=== PATIENT | male | born 1970 | race Caucasian/White ===

== ENCOUNTER 2024-10-16 21:23 | Observation (INO) | payer BC, SELFPAY ==
[2024-10-16 15:12] VITALS: BP 146/96
[2024-10-16 15:27] LABS: % Basophils 0.4 % (0-2); % Eosinophils 0.3 % (0-6); % Immature Granulocytes 0.3 % (0-0.5); % Lymphocytes 19.6 % (20.5-51.1); % Monocytes 7.7 % (1.7-9.3); % Neutrophils 71.7 % (42.2-75.2); Absolute Lymphocytes 1.6 10^3/uL (1.2-3.4); Absolute Monocytes 0.6 10^3/uL (0.1-0.6); Absolute Neutrophils 5.7 10^3/uL (1.4-6.5); Hematocrit 47.4 % (39.0-52.0); Hemoglobin 16.7 g/dL (13.0-18.0); Mean Corp Hgb Conc. 35.2 g/dL (33.0-37.0); Mean Corpuscular Hgb 28.7 pg (27.0-31.0); Mean Corpuscular Volume 81.6 fL (80.0-94.0); Mean Platelet Volume 9.3 fL (7.4-10.4); Nucleated Red Blood Cells % 0 % (-); Platelet Count 205 10^3/uL (130-400); Red Blood Cell Count 5.81 10^6/uL (4.70-6.10); Red Cell Dist. Width 12.8 % (11.5-14.5)
[2024-10-16 15:44] LABS: ALT (SGPT) 15 U/L (0-50); AST (SGOT) 19 U/L (17-59); Albumin 4.9 g/dl (3.5-5.0); Alkaline Phosphatase 53 U/L (38-126); Blood Urea Nitrogen 20 mg/dl (9-20); Calcium 9.2 mg/dl (8.4-10.2); Carbon Dioxide 22 mmol/L (22-30); Chloride 102 mmol/L (98-107); Glucose 200 mg/dl (70-99); Lipase 101 U/L (23-300); Potassium 4.1 mmol/L (3.5-5.1); Sodium 137 mmol/L (135-145); Total Bilirubin 1.1 mg/dl (0.2-1.3); Total Protein 7.9 g/dl (6.3-8.2)
[2024-10-16 16:11] LABS: Urine Albumin 2+ (Neg - Trace); Urine Bilirubin Negative (Negative); Urine Character Clear (Clear); Urine Color Yellow; Urine Glucose 4+ (Negative); Urine Ketone Negative (Negative); Urine Leukocyte Negative (Negative); Urine Nitrite Negative (Negative); Urine Occult Blood 2+ (Negative); Urine Urobilinogen Negative (Neg - 1+)
[2024-10-16 16:33] VITALS: BP 159/98
[2024-10-16 16:39] LABS: Urine Bacteria Few (Negative); Urine Red Blood Cell 0-2 /HPF (0-2); Urine White Cell 0-2 /HPF (0-5)
--- NOTE | 2024-10-16 16:40 | ED.GENMED ---
History of Present Illness
General
Chief Complaint: Flank Pain
Source: patient
Time Seen by Provider: 10/16/24 16:33
History of Present Illness
History of Present Illness:
54-year-old male with no significant past medical history presenting to the ER for evaluation of a sudden onset right-sided flank pain that began Tuesday afternoon described to be a mostly constant pain but has sharper bursts of pain
intermittently, Tuesday was starting to radiate around into the front of his abdomen into the groin, today started feel the pain in the flank again. Patient notes yesterday he had some vomiting, today none and currently denies any nausea. Notes a
Tmax of 99.9. Symptoms have all been improved with Motrin, pain currently however 9 out of 10. Denies any history of similar. No other associated symptoms.
Past History
Past History
ED Past Medical History: None
ED Past Surgical History: Appendectomy
Social History
Tobacco: Non-smoker
Alcohol: Occasional
Drug: None
Personal:
Living: with family
Employment: Employed
Review of Systems
Review of Systems
All Other Systems: ROS reviewed and negative except as documented in HPI and ROS
Phy Exam
Physical Exam
Physical Exam:
GENERAL: Alert , in no apparent distress, overweight
EYE: clear conjunctiva b/l
HEAD: NCAT
ENT: o/p clr, mmm.
CARDIAC: Regular rate and rhythm .
LUNGS: Clear breath sounds bilaterally, no acute respiratory distress, no wheezes/rales/rhonchi
ABDOMEN: Soft, without focal tenderness, no r/g, right-sided CVA tenderness, negative Choudhury sign
NEUROLOGICAL: Alert and oriented
SKIN: Warm and dry, skin intact.
MUSCULOSKELETAL: well perfused.
PSYCH: Normal and appropriate interaction.
Scores
Heart Failure Risk
Heart Failure Risk Score: Not Applicable
Heart Score for Chest Pain Patients
STEMI patient?: Not applicable
Withdrawal Assessment of Alcohol
Withdrawal Assessment Completed?: Not applicable
Course
Orders/Labs/Results
Orders:
Orders
10/16/24 15:21
Complete Blood Count/With Diff Urgent
Comprehensive Metabolic Panel Urgent
Lipase Urgent
10/16/24 15:25
Urinalysis Reflex To Culture Urgent
Date Specimen was Collected: 10/16/24
Time Specimen was Collected: 15:15
Urine Microscopic Reflex Cult Urgent
10/16/24 16:39
CT Abd/pel Without Iv Or Oral Urgent
Comment:
Reason For Exam: right flank pain, microscopic hematuria
0.9% Sodium Chloride 1000 ml [Nss] 1,000 ml IV BOLUS
Morphine Sulfate 4 mg IV NOW STA
10/16/24 17:41
CefTRIAXone [Rocephin] 1,000 mg IV NOW STA
10/16/24 18:16
0.9% Sodium Chloride 1000 ml [Nss] 1,000 ml IV BOLUS
10/16/24 18:30
Blood Culture Q30M
NICOLAS Source: Blood/Venous
Specimen Description:
10/16/24 19:00
Blood Culture Q30M
NICOLAS Source: Blood/Venous
Specimen Description:
Abnormal Lab Results
10/16/24 10/16/24
15:21 15:25
Lymphocytes % 19.6 L %
(20.5-51.1)
Creatinine 1.6 H mg/dL
(0.7-1.3)
Glucose 200 H mg/dl
(70-99)
Ur Occult Blood Reflex 2+ A
(Negative)
Urine Bacteria (Reflex) Few A
(Negative)
Urine Glucose 4+ A
(Negative)
Urine Albumin (Reflex) 2+ A
(Neg - Trace)
10/16/24 15:21
10/16/24 15:21
Vital Signs
Initial and Last Documented VS:
Initial Vital Signs
Temp Pulse Resp BP Pulse Ox
97.8 F 86 16 146/96 98
10/16/24 15:12 10/16/24 15:12 10/16/24 15:12 10/16/24 15:12 10/16/24 15:12
Last Documented Vital Signs
Temp Pulse Resp BP Pulse Ox
97.8 F 79 16 159/98 98
10/16/24 15:12 10/16/24 16:56 10/16/24 16:56 10/16/24 16:33 10/16/24 17:15
MDM/Problems Addressed
Differential Diagnosis Includes:
Renal/ureteral colic, renal dysfunction, urinary infection/pyelonephritis/cystitis, previous appendectomy so no concern for this, shingles
MDM/Problems Addressed:
54-year-old male presenting the ER for evaluation of sudden onset right-sided flank pain accompanied with vomiting, had low-grade fevers with Tmax of 99.9. Afebrile here, mildly hypertensive and does appear mildly uncomfortable. Labs and urine
initiated on arrival which do show a mild acute kidney injury, hyperglycemia and microscopic hematuria. CT scan ordered. Morphine for pain control. Fluids ordered. Reassessment following.
*Radiology
Radiology exam reviewed: radiology read reviewed
*Pulse Oximetry
Patient hypoxic: no
*Critical Care Note
Total Time (30-74mins, 75-104mins- exclusive of procedures): Not Applicable
Patient Management
Discussion with other providers: Hospitalist and Make Up Operator Helper
Escalation/DeEscalation of care consider admission/obs:
CT scan shows a 6 x 4 mm obstructive stone at the mid right ureter. Given his reported low-grade fever at home combined with his mild acute kidney injury I discussed the case with urology who does recommend patient be admitted to hospitalist
service for antibiotics, fluids with plan to take patient to the OR in the morning. Urology to come see the patient at bedside. Hospitalist team notified and accepts for continued evaluation and treatment.
ED Attending Note
-
Portions of this chart may have been created with voice recognition software.� Occasional wrong word or��sound alike� substitutions may have occurred due to the inherent limitations of voice recognition software.
Discharge Plan
Departure
Patient Disposition: Admit
Date of Disposition: 10/16/24
Time of Disposition: 17:42
Presentation/result/management discussed w/ accepting MD/DO: Hospitalist
Discharge Problem:
Colic, ureteral, MERLENE (acute kidney injury), Ureterolithiasis
Prescriptions:
No Action
rosuvastatin [Crestor] 10 mg Tablet
10 mg PO DAILY
lisinopril 10 mg Tablet
10 mg PO DAILY
ibuprofen [Advil] 200 mg Tablet
200 mg PO TIDPRN PRN (Reason: MILD PAIN)
metformin 500 mg Tablet Extended Release 24 Hr
1,000 mg PO DAILY
escitalopram oxalate [Lexapro] 10 mg Tablet
10 mg PO DAILY
Jardiance 10 mg Tablet
10 mg PO DAILY
Ozempic 0.25 mg or 0.5 mg(2 mg/1.5 mL) Pen Injector
0.5 mg SC SA
Referrals:
Brant Spivey MD [Family Provider] -
Interventions
Interventions:
*Risk Screen - Suicide Last Done: 10/16/24 15:14
*General Assessment Last Done: 10/16/24 17:14
*Neglect/Abuse Screening Last Done: 10/16/24 15:14
*ED- Fall Risk Assessment Last Done: 10/16/24 17:14
*ED COVID-19 Vaccine History Last Done: 10/16/24 17:14
LW-Lgvwtu-Lddpgtxnuy Assessment Last Done: 10/16/24 16:56
ED-Male Genitourinary Assessment Last Done: 10/16/24 16:56
Discharge Date and Time
Print Language: SERBIAN
[2024-10-16] MEDS: MORPHINE SULFATE 4 MG IV (16:45)
[2024-10-16] MEDS: NSS 1000 IV ×2 (16:45→18:28)
[2024-10-16] MEDS: ROCEPHIN 1000 MG IV (17:47)
[2024-10-16 18:00] VITALS: BP 164/104
--- NOTE | 2024-10-16 18:25 | W.PN.URO.CBU ---
Today's Communication / Plan
-
clear liquds tonifht npo at hs but if fevr dchills then stenting even tonight
Assessment / Plan
-
pt non toxic but ferv at home no leukocytosis pt expressed willingness to try and pass stone but aware of need to observe for sepsis will render npo and rehydrate but if fever chills then stenting but if min discomfort over night and no
systemic complaints will then consider trial of passage and medical expulsive therapy
Diagnosis
-
Date of Service: October 16, 2024
6x4 mm rt mid uretal stone 99.9 fever yesterday none today level 2 out of 10 pain today H/o gout and michell today 1.6 creatinine
-
Patient Diagnosis:
Post Op Day:
Subjective
-
colic no chills today
Objective
-
Vital Signs
Temp Pulse Resp BP Pulse Ox
97.8 F 79 16 159/98 98
10/16/24 15:12 10/16/24 16:56 10/16/24 16:56 10/16/24 16:33 10/16/24 17:15
Laboratory Results
10/16/24 15:21
10/16/24 15:21
Review of Systems
-
Abdomen/GI: Nausea
: Flank Pain
Physical Exam
-
General - well developed, well nourished, no acute distress
Chest - clear bilaterally
Abdomen - soft, non-tender, positive bowel sounds, no CVAT, no incisional pain or distention
Genitalia - normal
Rectal - normal
Skin - warm & dry with no rash
Neuro - AOx3, no motor deficits
Extremities - no clubbing, no cyanosis, no edema
Incision - clean, dry
Dressing - clean, dry, intact
Care Review
Data Reviewed
Discussed with: Hospitalist
CT Scan: Image Pers Reviewed
[2024-10-16 19:24] VITALS: BP 161/89
[2024-10-16] MEDS: FLOMAX 0.4 MG PO (19:36)
--- NOTE | 2024-10-16 20:36 | HPS.HSE ---
Family Physician
-
Family Physician: Brant Spivey
Chief Complaint
-
right-sided flank pain
History of Present Illness
HPI
54M HX Gout, HTN, DMT2, HLD seen at ER for evaluation
- sudden onset right-sided flank pain accompanied with vomiting, also had low-grade fevers with Tmax of 99.9
- assoaiated with radiating around into the front of his abdomen into the groin,
- yesterday he had some vomiting, today none and currently denies any nausea.
- Tmax of 99.9.
- Symptoms have all been improved with Motrin
- Denies any history of similar HPI
Medical History
Past Medical History
Past Medical History: Reports HTN, Hypercholesterolemia, NIDDM and Other (Gout )
Past Surgical History: Reports Appendectomy
Social History
Tobacco: Non-smoker
Alcohol: Occasional
Family History
Family History: Not pertinent
Allergies / Home Medications
Allergies reflects when Allergies were last updated in [facility].
Home Medications with original date entered in [facility]
Allergy/Medication List:
Allergies
Allergy/AdvReac Type Severity Reaction Status Date / Time
Penicillins Allergy never had Verified 08/29/10 12:15
it -
family
members
allergic
food Allergy Unknown Uncoded 08/29/10 12:15
Home Medications
empagliflozin 10 mg tablet (Jardiance) 10 mg PO DAILY 10/16/24
escitalopram oxalate 10 mg tablet (Lexapro) 10 mg PO DAILY 10/16/24
ibuprofen 200 mg tablet (Advil) 200 mg PO TIDPRN PRN MILD PAIN 10/16/24
lisinopril 10 mg tablet 10 mg PO DAILY 10/16/24
metformin 500 mg tablet,extended release 24 hr 1,000 mg PO DAILY 10/16/24
rosuvastatin 10 mg tablet (Crestor) 10 mg PO DAILY 10/16/24
semaglutide 0.25 mg or 0.5 mg (2 mg/1.5 mL) subcutaneous pen injector (Ozempic) 0.5 mg SC SA 10/16/24
Review of Systems
-
Constitutional: Reports No Symptoms
EENT: Reports No Symptoms
Respiratory: Reports No Symptoms
Cardiac: Reports No Symptoms
Abdomen/GI: Reports No Symptoms
: Reports See HPI
Musculoskeletal: Reports No Symptoms
Skin: Reports No Symptoms
Neurological: Reports No Symptoms
Endocrine: Reports No Symptoms
Hematologic/Lymphatic: Reports No Symptoms
Psych: Reports No Symptoms
Physical Exam
Vital Signs
Vital Signs
Temp Pulse Resp BP Pulse Ox
97.8 F 73 17 161/89 97
10/16/24 15:12 10/16/24 19:26 10/16/24 19:26 10/16/24 19:24 10/16/24 20:15
Physical Exam
General: Well Developed, Well Nourished and No Apparent Distress
HEENT: NormoCephalic, Moist mucous membranes and Atraumatic
Respiratory: Clear
Cardiac: S1/S2 and Regular Rhythm; No Murmur or Rub
GI: Soft, Non Tender, Non Distended and Normal Bowel Sounds; No Organomegaly
Rectal: Deferred by Provider
Genito-urinary: Costovertebral angle tend (Rt side )
Musculoskeletal: No Clubbing, No Cyanosis and No Edema
Skin: No Rash
Neuro: Nonfocal/grossly intact
Psych: Intact Judgment/Insight
Laboratory Results
-
10/16/24 15:21
10/16/24 15:21
Laboratory Results
Total Bilirubin 1.1 mg/dl (0.2-1.3) 10/16/24 15:21
AST 19 U/L (17-59) 10/16/24 15:21
ALT 15 U/L (0-50) 10/16/24 15:21
Alkaline Phosphatase 53 U/L (38-126) 10/16/24 15:21
Lipase 101 U/L (23-300) 10/16/24 15:21
Data Reviewed
-
CT Scan: Report Reviewed by me
Lab Data: Labs Reviewed by me
Impression/Plan
-
Vital Signs
Temp Pulse Resp BP Pulse Ox
97.8 F 73 17 161/89 97
10/16/24 15:12 10/16/24 19:26 10/16/24 19:26 10/16/24 19:24 10/16/24 20:15
Lab
10/16/24
15:21
WBC 8.0
Hgb 16.7
Plt Count 205
Potassium 4.1
BUN 20
Creatinine 1.6 H
eGFR 51.[address] AP Without Iv Or Oral
- 6 x 4 mm mid right ureteral calculus with mild obstructive uropathy.
- Mild splenomegaly.
- Right lower lobe pulmonary nodules measuring 2.7 mm and 2.3 mm.
Consider follow-up in 12 months if the patient is at increased risk.
NO Prior hospitalist admission:
ASSESSMENT & PLAN
Rt Ureteric colic
Associated with mid Rt. ureteral calculus with mild obstructive uropathy.
Post renal MERLENE
- non toxic but fever at home
- no leukocytosis
- willingness to try and pass stone but aware of need to observe for sepsis
- NPO and IVF
- if fever chills then stenting per Uro
- If no systemic complaints - medical expulsive therapy
Post renal MERLENE
Essential HTN
- Hold Lisinopril and Metformin for now
DMT2
- Hold Metformin,
- add ISS low
HLD
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
Rt LL pulmonary nodules measuring 2.7 mm and 2.3 mm.
- follow-up in 12 months if the patient is at increased risk.
HX Gout
Depression
- c/w Lexapro
Obesity
DVT Px: SCD
Code: Full code
Obs MS
[2024-10-16 23:30] VITALS: BP 153/94; BMI 38.2
--- NOTE | 2024-10-17 00:05 | PTCARENOTE ---
Pt a 54-year-old male with R flank pain dx Ureteral Calculus with right-sided flank pain PMH NIDDM, HTN, HLD, Depression arrived from ED at 23:37. Pt A)x3, bed in a low position, call light in reach.
[2024-10-17] MEDS: NSS 1000 IV (00:23)
[2024-10-17 00:55] LABS: Glucose - Point of Care 143 mg/dl (70-99)
[2024-10-17] MEDS: TYLENOL 650 MG PO (02:15)
[2024-10-17] MEDS: SENOKOT-S 1 TABLET PO (02:15)
[2024-10-17 06:02] LABS: Glucose - Point of Care 134 mg/dl (70-99)
[2024-10-17 07:20] VITALS: BP 171/103
[2024-10-17 07:40] LABS: Glucose - Point of Care 126 mg/dl (70-99)
[2024-10-17 07:58] LABS: Blood Urea Nitrogen 17 mg/dl (9-20); Calcium 8.1 mg/dl (8.4-10.2); Carbon Dioxide 26 mmol/L (22-30); Chloride 108 mmol/L (98-107); Estimated Creatinine Clearance 81 ml/min; Glucose 140 mg/dl (70-99); Potassium 3.9 mmol/L (3.5-5.1); Sodium 141 mmol/L (135-145); eGFR 55.32
[2024-10-17 08:34] LABS: Hemoglobin 14.1 g/dL (13.0-18.0); Mean Corp Hgb Conc. 34.4 g/dL (33.0-37.0); Mean Corpuscular Hgb 28.8 pg (27.0-31.0); Mean Corpuscular Volume 83.8 fL (80.0-94.0); Mean Platelet Volume 9.3 fL (7.4-10.4); Platelet Count 153 10^3/uL (130-400); Red Blood Cell Count 4.89 10^6/uL (4.70-6.10); Red Cell Dist. Width 12.7 % (11.5-14.5); White Blood Cell Count 4.6 10^3/uL (4.8-10.8)
[2024-10-17] MEDS: CRESTOR 10 MG PO (08:46)
[2024-10-17] MEDS: LEXAPRO 10 MG PO (08:46)
[2024-10-17] MEDS: FLOMAX 0.4 MG TUBE (08:46)
--- NOTE | 2024-10-17 09:13 | W.PN.HOSP.TC ---
Addendum entered and electronically signed by Harry Loera MD 10/17/24 17:36:
Seen and examined by me independently in collaboration with the medical laboratory assistant.
Lab data and imaging data reviewed.
Addendum as below :
Patient was status post cystoscopy and stent placement for obstructing right ureteral calculus. Full OR report pending. Urologist touch based with me and said if he tolerates diet he is okay from his discharge my standpoint.
Patient tolerating diet and ambulating. Hemodynamically stable. Denies any flank pain.
UA did not show any pyuria, his white count was normal, no fever. Unclear if truly infected but with CT showing minor periureteral stranding along the course of the right ureter which could be just secondary to obstructive uropathy we will cover
him empirically with antibiotics-ordered Keflex for 6 more days.
He does have MERLENE, mild obstructive uropathy. Advised to hold his lisinopril and check BMP in 3 to 4 days. In meantime we will prescribe Norvasc for blood pressure management which he is in agreement.
Advised to avoid NSAID use. Gave 4 days of tramadol for pain.
Total discharge 32 minutes
Original Note:
Today's Communication/Plan
-
Monitor serum creatinine
Monitor blood pressure
Await stenting
Assessment / Plan
Assessment / Plan
Impression
Patient is a 54-year-old male with past medical history of essential hypertension, diabetes mellitus, hyperlipidemia, gout, depression, who presented to the emergency at with complaint of pain in right flank since Tuesday. Initial was
intermittent, then became constant and radiated to anterior side and to the groin. Tmax of 99.9, rated the pain 9 out of [address]
CT abdomen done, revealed 6 x 4 mm mid right ureteral calculus with mild obstructive uropathy. In addition there were pulmonary nodules 2.7 and 2.3 mm in the right lower lobe.
Urology on board, Dr. Meyer discussed with the patient and observed overnight, patient was not able to pass the stone. Today the plan discussed with the patient by urology is still do stenting.
Assessment/plan
#Right ureteral calculus with mild obstructive uropathy
6 x 4 mm stone in mid right ureteral calculus, could be related to his gout
Tmax of 99.9
Overnight patient remained afebrile, denied any chills, dizziness
Flomax 0.4 mg daily
Urology on board-plan to do a right ureteral stenting today
Await procedure and clearance from urology
#Postrenal MERLENE
Patient had a serum creatinine of 1.6
Most likely secondary to obstructive uropathy from the stone
Await stenting
Continue to monitor
#Essential hypertension
Lisinopril on hold
IV hydralazine as needed
#Diabetes mellitus-NIDDM
Hold metformin
Monitor blood sugar levels
Add insulin sliding scale
#History of gout-check serum uric acid levels
#Hyperlipidemia-continue rosuvastatin
#History of depression-continue with Lexapro
#Pulmonary nodules on CT [id number] in 12 months with a primary care physician
CODE STATUS-full code
DVT prophylaxis-SCDs
Anticipated Discharge: Within 24 hours
Subjective/Interval History
-
Date of Service: October 17, 2024
Denies any complaints, feels a little bit discomfort but no pain at this time
No fevers, no urinary issues, no hematuria
Objective Data
-
Labs:
Laboratory Results
10/17/24
07:00
WBC 4.6 L
Hgb 14.1
Hct 41.0
Plt Count 153 D
Sodium 141
Potassium 3.9
Chloride 108 H
Carbon Dioxide 26
BUN 17
Creatinine 1.5 H
Glucose 140 H
Calcium 8.1 L
Vital Signs:
Vital Signs
Temp Pulse Resp BP Pulse Ox
97.8 F 65 18 171/103 97
10/17/24 07:20 10/17/24 07:20 10/17/24 07:20 10/17/24 07:20 10/17/24 07:20
I&O
10/16/24 10/17/24 10/18/24
06:59 06:59 06:59
Intake Total 800 / 800
Balance 800 / 800
Review of Systems
-
All other systems: Reviewed and negative
Physical Exam
-
General: No Apparent Distress and Comfortable
HEENT: Moist Mucous Membranes and Anicteric
Respiratory: Clear to Auscultation; Negative Wheezes, Rales or Rhonchi
Cardiac: Regular Rhythm and S1/S2
GI: Soft, Nontender and Normal Bowel Sounds
Genito-urinary: Costovertebral Angle Tend (Mild)
Musculoskeletal: No Clubbing, No Cyanosis and No Edema
Skin: Warm and Dry
Neuro: Awake, AO x 3 and Nonfocal/Grossly Intact
Psych: Calm and Intact Judgement/Insight
--- NOTE | 2024-10-17 09:31 | W.PN.URO.CBU ---
Today's Communication / Plan
-
to op room
Assessment / Plan
-
pt non toxic but ferv at home no leukocytosis pt expressed willingness to try and pass stone but worried about chills wants requests intervention
Diagnosis
-
Date of Service: October 17, 2024
-
Patient Diagnosis:rt mid uretral stone michell chills
Post Op Day:
Patient Diagnosis:
Post Op Day:
Subjective
-
still pain temp 99.5 no rigors chills
Objective
-
Vital Signs
Temp Pulse Resp BP Pulse Ox
97.8 F 65 18 171/103 97
10/17/24 07:20 10/17/24 07:20 10/17/24 07:20 10/17/24 07:20 10/17/24 07:20
Intake and Output
10/16/24 10/17/24 10/18/24
06:59 06:59 06:59
Intake Total 800 / 800
Balance 800 / 800
Intake:
IV fluids (Total) 800 / 800
Other:
Number of approximated MODERATE 3 1
amounts of urine
Laboratory Results
10/17/24 07:00
10/17/24 07:00
Review of Systems
-
Abdomen/GI: Abdominal Pain
: Flank Pain
Physical Exam
-
General - well developed, well nourished, no acute distress
Chest - clear bilaterally
Abdomen - soft, non-tender, positive bowel sounds, no CVAT, no incisional pain or distention
Genitalia - normal
Rectal - normal
Skin - warm & dry with no rash
Neuro - AOx3, no motor deficits
Extremities - no clubbing, no cyanosis, no edema
Incision - clean, dry
Dressing - clean, dry, intact
Care Review
Data Reviewed
Discussed with: Nursing
CT Scan: Image Pers Reviewed
[2024-10-17] MEDS: APRESOLINE 5 MG IV (10:15)
[2024-10-17 10:20] LABS: Uric Acid 6.3 mg/dl (3.5-8.5)
[2024-10-17 11:21] VITALS: BP 170/89
[2024-10-17 12:21] LABS: Glucose - Point of Care 123 mg/dl (70-99)
[2024-10-17 14:50] VITALS: BP 144/103
[2024-10-17 15:36] LABS: Glucose - Point of Care 147 mg/dl (70-99)
[2024-10-17 15:50] VITALS: BP 138/98
--- NOTE | 2024-10-17 15:57 | DOWNTIME ---
There was a [employer] Client Train Announcer Downtime on 10/17/2024 from 1230 to 10/17/2024 at 1550. Downtime documentation of patient's care, including medication administrations, has been reconciled in the electronic record per guidelines. Refer to the
patient's paper chart under the miscellaneous tab to see printed paper medication records and downtime forms.
--- NOTE | 2024-10-17 16:16 | CM ---
CM met with spouse bedside
Pt off unit in OR for uro/stent
Pt resides with spouse
Indep with ADLs, denies use of DMEs
Pt is OBS- OBS form completed with spouse
Discharge Disposition- anticipate home no needs
[2024-10-17] MEDS: Pyridium 100 MG PO (16:33)
[2024-10-17] MEDS: ROCEPHIN 1000 MG IV (16:33)
[2024-10-17] MEDS: NSS IV (17:50)
[2024-10-17 18:08] LABS: Glucose - Point of Care 278 mg/dl (70-99)
--- NOTE | 2024-10-17 18:28 | W.DCSUMMARY ---
Discharge Summary
Discharge Data
Date of Admission: 10/16/24
Date of Discharge: 10/17/24
-
Pending Results: No
Hospital Course
Discharging Physician :
Ree Loera
Disposition :
Home
Primary care physician :
Brant Spivey
Principal Discharge diagnosis :
Right ureteral calculus with mild obstructive uropathy/Postrenal MERLENE
Chronic Discharge diagnosis :
History of gout, hyperlipidemia, depression
Newfound pulmonary nodules 2.3 cm and 2.[address]
Hospital Course :
54-year-old male presented with sudden onset right-sided flank pain accompanied with vomiting and low-grade fever with Tmax of 99.9. CT abdominal/pelvis done consistent with Right mid ureteral calculus with mild obstructive uropathy. In addition
there were pulmonary nodules 2.7 and 2.3 mm in the right lower lobe. Dr. Meyer saw the patient and observed overnight but the patient was not able to pass the stone. Given the change in serum creatinine due to obstructive uropathy, Dr. Meyer
discussed with the patient and they agreed to do stent placement. Patient was s/p cystoscopy and stent placement for obstructive right ureteral calculus. Discussed with the urologist, he felt comfortable discharging the patient on antibiotics and
pain medications.
Patient did have MERLENE due to mild obstructive uropathy. Advised to hold his lisinopril and check BMP in 3 to 4 days. In meantime prescribed Norvasc for blood pressure management which he agreed to. Also advised him to avoid any NSAIDs. Patient
will follow-up with his primary care physician after getting the BMP done for further continuance of his medication.
Important imaging findings :
Abdominal/pelvis CT 10/16/2024
IMPRESSION:
6 x 4 mm mid right ureteral calculus with mild obstructive uropathy.
Mild splenomegaly.
Right lower lobe pulmonary nodules measuring 2.7 mm and 2.3 mm. Consider follow-up in 12 months if the patient is at increased risk.
Fleischner Society guideline recommendations for nodule follow up:
Solid nodule:
< 6 mm (<100mm3)
Single, low risk, no routine follow
Single, high risk, optional CT at 12 months
Multiple, low risk, no routine follow
Multiple, high risk, optional CT at 12 months
Abdominal x-ray 10/17/2024
FINDINGS and IMPRESSION: Intraoperative spot views were submitted, demonstrating right ureteral JJ stent, components in expected position. For further information, please see the operative report.
patient to follow-up with urology in a week for stent removal and further recommendations.
Discharge Plan
-
Patient Disposition: Home (Routine Discharge)
Discharge Diagnosis/Procedures: Right mid ureteral stone with mild obstructive uropathy s/p laser remover of stone and stenting
Condition: Fair
Diet: Regular
Activity: As tolerated
Driving Restrictions: As prior to admission
Bathing Restrictions: OK to Shower
Activity Restrictions/Additional Instructions:
Please call the urology office on the provided number to make an appointment for strict stent removal next week
Call at [phone] today/tomorrow to make an appointment-asked for surgery scheduling extension 5 to remove the stent next week
Referrals:
Aly Meyer MD [Active, Urology] - 10/24/24
Brant Spivey MD [Family Provider, Family Practice]
Prescriptions:
New
cephalexin 500 mg capsule
500 mg PO TID 6 Days Qty: 18 0RF
amlodipine 5 mg tablet
5 mg PO DAILY 7 Days Qty: 7 0RF
acetaminophen [Tylenol Extra Strength] 500 mg tablet
500 mg PO Q4H PRN (Reason: mild to moderate pain/fever) 30 Days Qty: 30 0RF
tramadol 50 mg tablet
50 mg PO Q8H PRN (Reason: moderate pain) Qty: 10 0RF
phenazopyridine [Pyridium] 100 mg tablet
100 mg PO TID PRN (Reason: penile pain or pain with urination) Qty: 6 0RF
Rx Instructions:
Can turn your urine orange in color
Continued
rosuvastatin [Crestor] 10 mg Tablet
10 mg PO DAILY
metformin 500 mg Tablet Extended Release 24 Hr
1,000 mg PO DAILY
escitalopram oxalate [Lexapro] 10 mg Tablet
10 mg PO DAILY
Jardiance 10 mg Tablet
10 mg PO DAILY
Ozempic 0.25 mg or 0.5 mg(2 mg/1.5 mL) Pen Injector
0.5 mg SC SA
Held
lisinopril 10 mg Tablet
10 mg PO DAILY
Hold Instructions: Repeat BMP and follow up with PCP
Discontinued
ibuprofen [Advil] 200 mg Tablet
200 mg PO TIDPRN PRN (Reason: MILD PAIN)
Discharge Orders:
Discharge Patient (As Directed); Ordered 10/17/24
Ordered By: Shahid Leung
Discharge Date and Time
Print Language: ICELANDIC
== END 2024-10-17 18:45 | disposition home or self-care (01) ==
LOC: 2 SOUTH 21:23
PROVIDERS: ADMITTING PHYSICIAN Internal Medicine; ATTENDING PHYSICIAN Internal Medicine; EMERGENCY PHYSICIAN Emergency Medicine; FAMILY PHYSICIAN Family Medicine; OTHER PHYSICIAN Specialist
PROC: 0TC68ZZ Extirpation of Matter from Right Ureter, Via Natural or Artificial Opening Endoscopic (ICD-10-PCS; 2024-10-17)
PROC: 0T768DZ Dilation of Right Ureter with Intraluminal Device, Via Natural or Artificial Opening Endoscopic (ICD-10-PCS; 2024-10-17)
DX: N20.1 Calculus of ureter (principal); N17.9 Acute kidney failure, unspecified; I10 Essential (primary) hypertension; E11.65 Type 2 diabetes mellitus with hyperglycemia; E78.00 Pure hypercholesterolemia, unspecified; Z79.899 Other long term (current) drug therapy; E66.9 Obesity, unspecified; Z68.38 Body mass index [BMI] 38.0-38.9, adult
CPT/HCPCS: 52356; 74018; 74176; 76000; 80048; 80053; 81003; 81015; 82365; 82962; 83036; 83690; 84550; 85025; 85027; 87040; 96361; 96374; 96375; 99284; A4300; C1894; G0378